=== PATIENT | male | born 1960 | race Caucasian/White ===

== ENCOUNTER 2021-12-17 18:01 | Emergency (ER) | payer OTHER | END 2021-12-17 23:00 | disposition left against medical advice (07) | LOC: FER 18:01 | DX: S12.8XXA Fracture of other parts of neck, initial encounter (principal); M54.2 Cervicalgia; I10 Essential (primary) hypertension; J45.909 Unspecified asthma, uncomplicated; F17.210 Nicotine dependence, cigarettes, uncomplicated; Y04.0XXA Assault by unarmed brawl or fight, initial encounter | CPT/HCPCS: 70450; 70490; 72125 ==